=== PATIENT | male | born 1995 | race Caucasian/White ===

== ENCOUNTER 2017-06-30 21:22 | Emergency (ER) | payer OTHER ==
[~2017-06-30] VITALS: Ht 185.4 cm; Wt 86.2 kg
[2017-06-30 21:30] VITALS: Ht 185.4 cm; Wt 86.2 kg
[2017-06-30 22:12] LABS: BASOPHIL % 0.3 % (0-2); PLATELET COUNT 175 x10^3mcL (130-400); RED CELL DISTRIBUTION WIDTH 13.6 % (11.5-14.5)
[2017-06-30 22:17] LABS: CALCIUM 9.2 mg/dL (8.5-10.1); CHLORIDE SERUM 102 mmol/L (98-107); CREATININE SERUM 1.1 mg/dL (0.7-1.3); GFR1 > 60 mL/min; GLUCOSE SERUM 96 mg/dL (74-106); POTASSIUM SERUM 3.6 mmol/L (3.5-5.1); SODIUM SERUM 138 mmol/L (136-145)
[2017-06-30 22:32] LABS: ALBUMIN 4.3 g/dL (3.4-5.0); ALKALINE PHOSPHATASE 74 U/L (46-116); ALT/SGPT 41 U/L (16-63); AST/SGOT 23 U/L (15-37); BILIRUBIN TOTAL 0.5 mg/dL (0.20-1.00); LIPASE 120 IU/L (73-393); T4(THYROXINE) 7.1 ug/dL (4.7-13.3); TOTAL PROTEIN, SERUM 7.7 g/dL (6.4-8.2)
[2017-06-30 23:08] VITALS: BP 136/90
== END 2017-06-30 23:08 | disposition home or self-care (01) ==
LOC: ED 21:22
PROVIDERS: Emergency Medicine
DX: R07.89 Other chest pain (principal)
CPT/HCPCS: 36415